=== PATIENT | female | born 2000 | race Caucasian/White ===

== ENCOUNTER 2022-03-14 19:59 | Emergency (ER) | payer BC, SELFPAY ==
[2022-03-14 20:07] VITALS: BP 119/73; PULSE 92; RESP 18; TEMP 36.6; O2SAT 98; BMI 25.2
[2022-03-14 20:15] LABS: Appearance Urine Cloudy (Clear); Bilirubin Urine 1+ (Negative); Blood Urine 3+ (Negative); Color Urine Red (Yellow); Glucose Urine Negative (Negative); Ketones Urine 2+ (Negative); Leukocyte Esterase Urine 1+ (Negative); Nitrite Urine Positive (Negative); Protein Urine 3+ (Negative); Specific Gravity Urine 1.025 (1.000-1.030)
[2022-03-14 20:24] LABS: RBC Urine >100 (0-2); Squamous Epithelial Cell Urine Few (None-Few); WBC Urine 0-2 (0-5)
--- NOTE | 2022-03-14 20:34 | ED.GENADULT ---
HPI - General Adult General Date Seen: 03/14/22 Chief complaint: Urogenital Problems, Female Stated complaint: Urinating Blood Time Seen by Provider: 03/14/22 20:24 Source: patient, RN notes reviewed and old records reviewed Mode of arrival: ambulatory Limitations: no limitations History of Present Illness HPI narrative: 21-year-old young woman presenting to the emergency department with concern of blood in her urine beginning about 3:00 p.m. today. Describes dysuria and frequency as well. No abdominal or flank pain. No fever. No nausea. history of kidney problems or nephrolithiasis. note a history of urinary tract infections last maybe 2 years ago. She does not know why she gets them. Does not recall failing antibiotics in the past. Initially not offered but apparent with further questioning is that she actually has symptoms beginning maybe 6 or 7 days ago with a slight bit of blood small clot I believe at the end of voiding. Subsequently was seen 4 days ago at [facility] initiated on nitrofurantoin. She says they were kind of equivocal about whether not she needed to begin the antibiotic. She has also been trying azo intermittently. Denies possibility of . She is unsure of what culture results may have been however reviewing her online record with her phone we are able to find a urine culture results that shows less than 10,000 colonies. Presumably this is I she has not been contacted. The urinalysis itself was unconvincing as well. Related Data Home Medications Medication Instructions Recorded Confirmed norgestimate-ethinyl estradiol tab 03/14/22 0.18 mg/0.215mg/0.25mg-35 mcg(28)tablet (Tri-Sprintec (28)) Allergies Allergy/AdvReac Type Severity Reaction Status Date / Time latex Allergy Verified 03/14/22 20:16 Review of Systems Status of ROS: Reports: 6 or more systems reviewed and unremarkable except as noted in History and below Exam Narrative: Exam Narrative: Pleasant. NAD. Well nourished. Tanned. Apparently has a physical job working for [employer]. Moving all extremities without difficulty. Well perfused peripherally. Cranial nerves 2-12 intact. Is breathing easily. CV RRR Abdomen is soft. She is slightly tender to suprapubic palpation as well as percussion in the left flank. Genitourinary exam was not done. Const: Vital Signs, click to edit/add: Vital Signs - 24 hr 03/14/22 20:07 Temperature 97.9 F Pulse Rate [Pulse Oximeter] 92 Respiratory Rate 18 Blood Pressure [Le ft Upper Arm] 119/73 Pulse Oximetry 98 Documenting provider has reviewed patient's vital signs: yes Course Course Hospital Course: Urinalysis was obtained. Appears positive for infection. Vital Signs Vital signs: Initial Vital Signs Temperature 97.9 F 03/14/22 20:07 Temperature Source Temporal Artery Scan 03/14/22 20:07 Pulse Rate 92 03/14/22 20:07 Pulse Rhythm 03/14/22 20:07 Respiratory Rate 18 03/14/22 20:07 Blood Pressure 119/73 03/14/22 20:07 Blood Pressure Mean 88 03/14/22 20:07 Pulse Oximetry 98 03/14/22 20:07 Oxygen Delivery Method 03/14/22 20:07 Vital Signs Temperature 97.9 F 03/14/22 20:07 Pulse Rate 92 03/14/22 20:07 Respiratory Rate 18 03/14/22 20:07 Blood Pressure 119/73 03/14/22 20:07 Pulse Oximetry 98 03/14/22 20:07 Temperature 97.9 F 03/14/22 20:07 Pulse Rate 92 03/14/22 20:07 Respiratory Rate 18 03/14/22 20:07 Blood Pressure 119/73 03/14/22 20:07 Pulse Oximetry 98 03/14/22 20:07 Medical Decision Making MDM Narrative Medical decision making narrative: Initially slightly elevated pulse otherwise vital a well. Absent significant other indication of severe disease. Changing to cephalexin as prescribed from [facility] along with azo. Urine culture pending. Medical Records Medical records narrative: As above through her phone. Lab Data Lab results reviewed: Yes I reviewed the patient's lab results Lab results narrative: Discussed these results with Ms. Patten Labs: Lab Results 03/14/22 Range/Units 20:05 Urine Color Red A (Yellow) Urine Appearance Cloudy A (Clear) Urine pH 6.0 (5.0-8.5) Ur Specific [place] 1.025 (1.000-1.030) Urine Protein 3+ A (Negative) Urine Glucose (UA) Negative (Negative) Urine Ketones 2+ A (Negative) Urine Blood 3+ A (Negative) Urine Nitrite Positive A (Negative) Urine Bilirubin 1+ A (Negative) Urine Urobilinogen 1.0 (0.2-1.0) Ur Leukocyte Esterase 1+ A (Negative) Urine RBC >100 A (0-2) Urine WBC 0-2 (0-5) Ur Squamous Epith Cells Few (None-Few) Urine Bacteria None (None) Discharge Plan Discharge Clinical Impression: Cystitis Patient Disposition: Home, Self-Care Condition: Stable Additional Instructions: Hydrate with unsugared/unsweetened liquids -water is great. Report/return for fever, marked increase in abdominal pain, repeated vomiting. A urine culture is pending here. Stop the nitrofurantoin Prescriptions: No Action norgestimate-ethinyl estradiol [Tri-Sprintec (28)] 0.18/0.215/0.25 mg-35 mcg (28) tablet 0RF Label Comments: TAKE 1 TABLET BY MOUTH DAILY Follow Up/Referrals: Lily Crowell, COURIER, LIGHTNING ROD ERECTOR [Primary Care Provider] - Stand Alone Forms: [employer] Info Instructions
--- NOTE | 2022-03-16 18:37 | ED.NURSE ---
patient called in wanting to know what culture results are. apparently the UC was canceled and patient was upset wanting to know what happened. Unsure what happened but talked to Dr. Allen of situation and patient started on cephalexin. patient is to hold dose of Keflex tonight and restart in the am since feeling nauseated. Increase fluid intake, take something for the constipation and see how feels in am. If not improving return to the ED or PCP. talked about the culture would not show anything since already on an antibiotic.
--- NOTE | 2022-03-21 13:04 | ED.NURSE ---
Pt called stating that she received 40 pills from [facility]. States she was to take a 7 day course and has pills left over. Advised pt that the [facility] macine is pre-filled and to discard any unused medications once she completes her antibiotic course. Pt states understanding and will follow up with her primary care doctor.
== END 2022-03-14 21:35 | disposition home or self-care (01) ==
PROVIDERS: Emergency Provider Family Medicine; PCP Nurse Practitioner Family
DX: N30.90 Cystitis, unspecified without hematuria (principal)
CPT/HCPCS: 81003; 81015; 99283; 99284

== ENCOUNTER 2024-06-06 11:35 | Emergency (ER) | payer BC, SELFPAY ==
[2024-06-06 11:41] VITALS: BP 123/76; PULSE 107; RESP 18; TEMP 37.4; O2SAT 99; BMI 26.6
--- NOTE | 2024-06-06 12:03 | CRLHL7_ITS ---
For Patients: As a result of the Century Cures Act, medical imaging exams and procedure reports are released immediately into your electronic medical record. You may view this report before your referring provider. If you have questions, please contact your health care provider. INDICATION: Tonsillar abscess COMPARISON: None. TECHNIQUE: CT of the neck with intravenous contrast (83 milliliters Isovue 370). FINDINGS: Visualized paranasal sinuses demonstrate overall mild mucosal thickening. The mastoid air cells are clear. Visualized portion of the brain is unremarkable. Unremarkable thyroid gland. Normal orbits. No enlarged cervical lymph nodes are detected. Unremarkable salivary glands. No effacement of the fat within the bilateral parapharyngeal space. The visualized aerodigestive tract is patent. Asymmetric enlargement and striated appearance of the right greater than left tonsil compatible with tonsillitis. No discrete abscess is identified. Lung apices are clear. IMPRESSION: Asymmetric enlargement and striated appearance of the right greater than left tonsil compatible with tonsillitis. No discrete abscess is identified. Please note that all CT scans at this facility use dose modulation, iterative reconstruction, and/or weight-based dosing when appropriate to reduce radiation dose to as low as reasonably achievable. Dictated by Rick Del Castillo MD @ 06/06/2024 1:05:32 PM (Electronically Signed)
--- NOTE | 2024-06-06 12:05 | ED.GENADULT ---
HPI - General Adult General Chief complaint: Ear/Nose/Throat Problem Stated complaint: Throat swelling pain, body aches Time Seen by Provider: 06/06/24 11:37 History of Present Illness HPI narrative: This 23-year-old female comes in reporting sore throat for the past 2 days. She does report some muffling of her voice and has increased pain when opening her mouth rather wide. She does not report any fevers. She does not have a cough. Related Data Previous Rx's ?Medication ?Instructions ?Recorded norgestimate-ethinyl estradiol 1 tab PO DAILY #84 tabs 10/26/23 0.18 mg/0.215mg/0.25mg-35 mcg(28)tablet (Tri-Sprintec (28)) tretinoin 0.1 % topical cream 1 applic topical 3XW 30 days #45 10/26/23 (Retin-A) grams amoxicillin 875 mg-potassium 1 tab PO BID #20 tabs 06/06/24 clavulanate 125 mg tablet ketorolac 10 mg tablet 10 mg PO Q8H 5 days #15 tabs 06/06/24 Allergies Allergy/AdvReac Type Severity Reaction Status Date / Time latex Allergy Verified 06/06/24 12:27 Review of Systems Status of ROS: Reports: 10 or more systems reviewed and unremarkable except as noted in History and below Narrative: Constitutional: No fevers, no weight gain or loss. Eyes: No discharge. No vision changes. HENT: No congestion, no ear pain. Sore throat as described above. Cardiovascular: No chest pain, no palpitations. Respiratory: No shortness of breath, no wheezes, no cough. Gastrointestinal: No abdominal pain, no vomiting, no diarrhea. Genitourinary: No dysuria, no hematuria. Musculoskeletal: Normal range of motion. Skin: No rashes, no pruritis. Neurological: No dizziness, weakness, sensory change, speech change. Endo/Heme/Allergies: No bruising or bleeding. No polydipsia. Pysch: no suicidality, no anxiety, no insomnia. All other systems reviewed and are negative. 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 Exercise regularly. Vape. No cigarette smoking. Alcohol, infrequently. No illicit drug use. What is your current living situation?: I presently have a place to live Problems where you live: no known problems In the past 12 months, utilities in danger of being shut off: no In past 12 months, lack of transportation kept you from medical appts, meetings, work, or getting things needed for daily living: no In the past 12 mos, have been you worried that your food would run out before you had money to buy more?: never true In the past 12 mos, the food you bought just didn't last and you didn't have money to buy more?: never true Smoking Status: Never smoker Do you use any of these nicotine containing products: Vaping Products How often do you have a drink containing alcohol: 2-4 times a month AUDIT-C Alcohol total score: 2 Non-prescribed substance use: denies use How often does anyone, including family, friends and others, physically hurt you: never How often does anyone, including family, friends and others, insult or talk down to you: never How often does anyone, including family, friends and others, threaten you with harm: never How often does anyone, including family, friends and others, scream or curse at you: never Exam Narrative: Exam Narrative: Constitutional: Well-developed, well-nourished, no acute distress. HEENT: Normocephalic, atraumatic. Oropharynx shows pharyngeal erythema with increased swelling of the right tonsil with some exudate. Neck: Normal range of motion. Nontender. Supple. Heart: Regular. No murmurs. Normal rate. Intact distal pulses. Lungs: Clear to auscultation. No chest discomfort. No wheezes, rhonchi, or rales. Abdomen: Normal bowel sounds. Nontender. No rebound tenderness. Genitalia: Deferred. Back: No midline tenderness. Normal range of motion. Extremities: Normal range of motion. No injury. Skin: Intact. No rash. Warm. No erythema or pallor. Neurologic: No altered sensation. No weakness. Alert and oriented. Psychiatric: No suicidality. No anxiety or depression. No insomnia. Nursing notes and vitals signs are reviewed. Const: Vital Signs, click to edit/add: Vital Signs - 24 hr 06/06/24 11:41 Temperature 99.3 F Pulse Rate [Bilate ral Pulse Oximeter ] 107 H Respiratory Rate 18 Blood Pressure [Ri ght Upper Arm] 123/76 Pulse Oximetry 99 Oxygen Delivery Me thod Room Air Course Vital Signs Vital signs: Initial Vital Signs Temperature 99.3 F 06/06/24 11:41 Temperature Source Temporal Artery Scan 06/06/24 11:41 Pulse Rate 107 H 06/06/24 11:41 Respiratory Rate 18 06/06/24 11:41 Blood Pressure 123/76 06/06/24 11:41 Blood Pressure Mean 91 06/06/24 11:41 Blood Pressure Position Sitting 06/06/24 11:41 Pulse Oximetry 99 06/06/24 11:41 Oxygen Delivery Method Room Air 06/06/24 11:41 Vital Signs Temperature 99.3 F 06/06/24 11:41 Pulse Rate 107 H 06/06/24 11:41 Respiratory Rate 18 06/06/24 11:41 Blood Pressure 123/76 06/06/24 11:41 Pulse Oximetry 99 06/06/24 11:41 Oxygen Delivery Method Room Air 06/06/24 11:41 Temperature 99.3 F 06/06/24 11:41 Pulse Rate 107 H 06/06/24 11:41 Respiratory Rate 18 06/06/24 11:41 Blood Pressure 123/76 06/06/24 11:41 Pulse Oximetry 99 06/06/24 11:41 Oxygen Delivery Method Room Air 06/06/24 11:41 Medications Administered Medications: Discontinued Medications Generic Name Dose Route Start Last Admin Trade Name Freq PRN Reason Stop Dose Admin Ceftriaxone Sodium 1 gm/ 100 mls @ 200 mls/hr 06/06/24 12:03 06/06/24 12:45 Sodium Chloride IVPB 06/06/24 12:04 200 mls/hr ONCE ONE Administration Methylprednisolone Sodium Succinate 125 mg 06/06/24 12:03 06/06/24 12:45 Methylprednisolone Sod Succ 62.5 Mg/Ml (125) IVP 06/06/24 12:04 125 mg ONCE ONE Administration Medical Decision Making MDM Narrative Medical decision making narrative: This patient comes in with sore throat and has some enlargement of her right tonsil with exudate. A CT scan of the soft tissue of the neck is obtained and shows no evidence of abscess but does identify swelling of the right tonsil indicative of tonsillitis. The patient did receive IV doses of Solu-Medrol 125 mg and Rocephin 1 g. Before discharge she also received Toradol 15 mg IV. She is okay to be discharged home. She received prescriptions for Augmentin and Toradol. Lab Data Labs: Lab Results 06/06/24 Range/Units 12:15 WBC 12.13 H (4.50-11.00) K/uL RBC 4.47 (4.00-5.20) m/uL Hgb 13.3 (12.0-16.0) gm/dL Hct 39.8 (33.0-51.0) % MCV 89 (80-100) fL MCH 30 (26-34) pg MCHC 33 (32-36) gm/dL RDW Coeff of [place] 11.9 (11.5-15.5) % Plt Count 205 (140-440) K/uL Neut % (Auto) 80.8 H (42.0-72.0) % Lymph % (Auto) 12.0 L (20-44) % [place] % (Auto) 6.2 (0.0-11.0) % Eos % (Auto) 0.7 (0.0-7.0) % Baso % (Auto) 0.2 (0.0-3.0) % Neut # (Auto) 9.80 H (1.7-7.0) K/uL Lymph # (Auto) 1.50 (0.90-2.90) K/uL [place] # (Auto) 0.80 (0.00-0.90) K/UL Eos # (Auto) 0.10 (0.00-0.50) K/uL Baso # (Auto) 0.00 (0.00-0.30) K/uL Abs Immat Gran (auto) 0.00 (0.00-0.30) K/uL Imm/Tot Granulo (auto) 0.1 % Imaging Data CT Soft Tissue Neck: Radiologist's impression: Asymmetric enlargement and striated appearance of the right greater than left tonsil compatible with tonsillitis. No discrete abscess is identified. Discharge Plan Discharge Clinical Impression: Acute tonsillitis Patient Disposition: Home, Self-Care Condition: Stable Additional Instructions: Take medications as prescribed. Follow up with MD or return if worsening symptoms occur. Prescriptions: New ketorolac 10 mg tablet 10 mg PO Q8H 5 Days Qty: 15 0RF amoxicillin-pot clavulanate 875-125 mg tablet 1 tab PO BID Qty: 20 0RF No Action tretinoin [Retin-A] 0.1 % cream 1 applic topical 3XW 30 Days Qty: 45 3RF norgestimate-ethinyl estradiol [Tri-Sprintec (28)] 0.18/0.215/0.25 mg-35 mcg (28) tablet 1 tab PO DAILY Qty: 84 3RF Follow Up/Referrals: Lily Crowell APRN, CONDITIONER TUMBLER OPERATOR [Primary Care Provider] - Stand Alone [facility]
[2024-06-06 12:21] LABS: Basophils Percent Auto 0.2 % (0.0-3.0); Eosinophils Percent Auto 0.7 % (0.0-7.0); Hematocrit 39.8 % (33.0-51.0); Hemoglobin* 13.3 gm/dL (12.0-16.0); Immature Granulocytes Pct Auto 0.1 %; Mean Corpuscular HGB Conc 33 gm/dL (32-36); Mean Corpuscular Hemoglobin 30 pg (26-34); Mean Corpuscular Volume 89 fL (80-100); Monocytes Percent Auto 6.2 % (0.0-11.0); Neutrophils Percent Auto 80.8 % (42.0-72.0); Platelet Count* 205 K/uL (140-440); RDW Coefficient of Variation % 11.9 % (11.5-15.5); Red Blood Count 4.47 m/uL (4.00-5.20); White Blood Count* 12.13 K/uL (4.50-11.00)
[2024-06-06 12:23] LABS: Slide Review Reflex No
[2024-06-06] MEDS: METHYLPREDNISOLONE SOD SUCC 62.5 MG/ML (125) 125 MG IVP (12:45)
[2024-06-06] MEDS: cefTRIAXone 1 GM in 0.9 % SODIUM CHLORIDE Mini-bag 100 ML IVPB (12:45)
[2024-06-06] MEDS: KETOROLAC 15 MG/ML inj IVP (13:31)
== END 2024-06-06 13:40 | disposition home or self-care (01) ==
PROVIDERS: Emergency Provider Emergency Medicine Emergency Medical Services; PCP Nurse Practitioner Family
DX: J03.90 Acute tonsillitis, unspecified (principal)
CPT/HCPCS: 36415; 70491; 85025; 96365; 96375; 99284; 99285; J0696; J1885; J2919; Q9967